=== PATIENT | male | born 1985 | race Caucasian/White ===

== ENCOUNTER 2016-07-07 17:38 | Emergency (ER) | payer OTHER ==
[~2016-07-07] VITALS: Ht 175.3 cm; Wt 72.6 kg
[2016-07-07 17:50] VITALS: BP 136/98
[2016-07-07] MEDS ORDERED: HYDROCODONE/APAP 5/325MG 1 EACH TABLET ONE (18:47)
[2016-07-07] MEDS ORDERED: HYDROCODONE/APAP 5/325MG 1 EACH TABLET PO ONE (19:00)
== END 2016-07-07 18:55 | disposition home or self-care (01) ==
LOC: ER 17:42
DX: K08.89 Other specified disorders of teeth and supporting structures (principal); Z88.1 Allergy status to other antibiotic agents; F17.200 Nicotine dependence, unspecified, uncomplicated
CPT/HCPCS: 99283; A4606; Z7610